=== PATIENT | female | born 1995 | race African-American/Black ===

== ENCOUNTER 2016-10-08 19:51 | Emergency (ER) | payer SELFPAY ==
[~2016-10-08] VITALS: Ht 152.4 cm; Wt 53.0 kg
[2016-10-08 20:26] VITALS: Ht 152.4 cm; Wt 53.0 kg
[2016-10-09 01:13] LABS: URINE BLOOD (Dip) POC Negative (NEGATIVE)
[2016-10-09 01:33] LABS: BASOPHILS % 0.7 % (0.0-2.0); EOSINOPHILS # 0.1 10^3/ul (0.0-0.5); EOSINOPHILS % 1.3 % (0.0-7.0); HEMATOCRIT 39.9 % (37.0-47.0); HEMOGLOBIN 13.9 g/dl (12.0-16.0); LYMPHOCYTES # 2.5 10^3/ul (0.8-2.9); LYMPHOCYTES % 44.9 % (15.0-51.0); MEAN CORPUSCULAR HEMOGLOBIN 32.2 pg (29.0-33.0); MEAN CORPUSCULAR HGB CONC 34.8 g/dl (32.0-37.0); MEAN CORPUSCULAR VOLUME 92.4 fl (82.0-101.0); MEAN PLATELET VOLUME 10.9 fl (7.4-10.4); MONOCYTE # 0.4 10^3/ul (0.3-0.9); MONOCYTES % 7.1 % (0.0-11.0); NEUTROPHIL # 2.5 10^3/ul (1.6-7.5); NEUTROPHILS % 45.8 % (39.0-77.0); PLATELET COUNT 236 10^3/UL (140-415); RED BLOOD COUNT 4.32 10^6/ul (4.20-5.40); RED CELL DISTRIBUTION WIDTH 11.5 % (11.5-14.5); WHITE BLOOD COUNT 5.5 10^3/ul (4.8-10.8)
[2016-10-09] MEDS ORDERED: MULTI PO (01:48)
[2016-10-09] MEDS ORDERED: OMEG-135 PO (01:48)
[2016-10-09] MEDS ORDERED: CHOL100062 PO (01:48)
[2016-10-09 01:56] LABS: CALCIUM 9.8 mg/dl (8.4-10.2); CREATININE 0.89 mg/dl (0.44-1.00); POTASSIUM 3.9 mmol/L (3.5-5.1)
--- NOTE | 2016-10-09 01:57 | RADRPT ---
PROCEDURE: CHEST - 1 VIEW CLINICAL INDICATION: 21-year-old female with syncope. TECHNIQUE: A single frontal AP upright portable view of the chest was performed. The images were reviewed on a PACS workstation. COMPARISON: None. FINDINGS: The cardiomediastinal silhouette has a normal appearance. There is no evidence for an infiltrate. T he pulmonary vascularity is within normal limits. There is no evidence for pneumothorax or pneumomed iastinum. The osseous structures are intact. IMPRESSION: No evidence for active cardiopulmonary disease. .Brant King MD, MD Date Time Electronically viewed and signed by .Brant King MD, MD on 10/09/2016 01:57 .M/
--- NOTE | 2016-10-09 02:08 | ERD ---
ER Documentation Chief Complaint Date/Time DATE: 10/09/16 TIME: 02:08 Chief Complaint Syncopal episode at 1600 per [place] HPI 21-year-old female presenting after an episode of syncope that happened around 1600 [place]. She was standing in line when she suddenly felt lightheaded. Per her boyfriend who is with her, she slumped over onto a railing. She was unconscious for about 1-1/2 minutes at least. She never had any color change. She did urinate on herself but had no seizure-like activity. He only noticed some twitching in her right hand. When she woke up, she was aware of what was going on and was not confused. She denied any associated chest pain, shortness of breath, or headache. She still felt somewhat weak and lightheaded after she regained consciousness and felt like she had some blurry vision which has now resolved. Now she feels back to her normal self. She had an episode like this about 2 weeks ago but she was only unconscious for about 6 seconds per her boyfriend. She denies any family history of sudden cardiac . No personal history of significant medical problems. ROS All systems reviewed and are negative except as per history of present illness. Medications Home Meds Reported Medications Cholecalciferol* (Vitamin D3*) 1,000 Unit Tablet, 1000 UNIT PO DAILY, TAB 10/09/16 [place]-3 Fatty Acids/Fish Oil (Fish Oil 1,000 mg Capsule) 1 Each Capsule, 1 EACH PO, CAP 10/09/16 Multivitamins* (Theragran*) 1 Tab Tab, 1 TAB PO DAILY, TAB 10/09/16 Allergies Allergies: Coded Allergies: No Known Allergy (Unverified , 10/08/16) PMhx/Soc Medical and Surgical Hx: pt denies Medical Hx, pt denies Surgical Hx Hx Psychiatric Problems: No Hx Miscellaneous Medical Probl: No Hx Alcohol Use: No Hx Substance Use: No Hx Tobacco Use: No Smoking Status: Never smoker FmHx Family History: No coronary disease, No diabetes Physical Exam Vitals Vital Signs Date Time Temp Pulse Resp B/P Pulse Ox O2 Delivery O2 Flow Rate FiO2 10/09/16 02:10 98.1 72 19 130/98 100 Room Air 10/09/16 00:48 98.3 70 19 131/101 100 Room Air 10/08/16 20:26 98.0 65 22 104/75 100 Physical Exam Const: Well-appearing, well-nourished, no apparent distress Head: Atraumatic Eyes: Normal Conjunctiva, PERRLA, EOMI ENT: Normal External Ears, Nose and Mouth. Neck: Full range of motion..~ No meningismus. Resp: Clear to auscultation bilaterally Cardio: Regular rate and rhythm, no murmurs. 2+ distal pulses Abd: Soft, non tender, non distended. Normal bowel sounds Skin: No petechiae or rashes Back: No midline or flank tenderness Ext: No cyanosis, or edema. No calf tenderness Neur: Awake and alert and oriented 3, cranial nerves intact, strength and sensations intact in all 4 extremities, cerebellar exam normal, normal gait Psych: Normal Mood and Affect Result Diagram: 10/09/1611410/09/16114 Results 24 hrs Laboratory Tests Test 10/09/16 01:15 10/09/16 01:16 10/09/16 01:18 White Blood Count 5.510^3/ul Red Blood Count 4.3210^6/ul Hemoglobin 13.9g/dl Hematocrit 39.9% Mean Corpuscular Volume 92.4fl Mean Corpuscular Hemoglobin 32.2pg Mean Corpuscular Hemoglobin Concent 34.8g/dl Red Cell Distribution Width 11.5% Platelet Count 34693^3/UL Mean Platelet Volume 10.9fl Neutrophils % 45.8% Lymphocytes % 44.9% Monocytes % 7.1% Eosinophils % 1.3% Basophils % 0.7% Nucleated Red Blood Cells % 0.0/100WBC Neutrophils # 2.510^3/ul Lymphocytes # 2.510^3/ul Monocytes # 0.410^3/ul Eosinophils # 0.110^3/ul Basophils # 0.010^3/ul Nucleated Red Blood Cells # 0.010^3/ul Sodium Level 142mmol/L Potassium Level 3.9mmol/L Chloride Level 99mmol/L Carbon Dioxide Level 28mmol/L Anion Gap 19 Blood Urea Nitrogen 12mg/dl Creatinine 0.89mg/dl Glucose Level 87mg/dl Calcium Level 9.8mg/dl Bedside Glucose 93mg/dL Bedside Urine pH (LAB) 5.5 Bedside Urine Protein (LAB) Negative Bedside Urine Glucose (UA) Negative Bedside Urine Ketones (LAB) Trace Bedside Urine Blood Negative Bedside Urine Nitrite (LAB) Negative Bedside Urine Leukocyte Esterase (L Negative Procedures/MDM EMERGENT LABS AND DIAGNOSTIC STUDIES: Lab Results above were reviewed and interpreted by me. CBC: no anemia or evidence of infection BMP: No evidence of electrolyte abnormality, renal failure, hypoglycemia, liver failure, or biliary obstruction negative Urine dip shows trace ketones 12-lead EKG was interpreted by Velia Miranda MD: Normal Sinus Rhythm with ventricular rate of 61 beats per minute Normal axis Normal intervals, no evidence of Brugada No acute ST or T wave changes suggestive of acute ischemia or STEMI. Radiology Results as interpreted by Radiology below were reviewed by Tony Miranda MD: Chest x-ray shows no acute abnormalities Initial Nursing notes reviewed. Previous Medical Records requested via the Electronic Health Record. EMERGENCY DEPARTMENT COURSE / MEDICAL DECISION MAKING: The patients vitals are within normal limits and labs are unremarkable. The ECG did not show any concerning abnormalities. I have a low suspicion for an arrhythmia, acute coronary syndrome, PE or a CVA or intracranial hemorrhage. Etiology for syncope is unknown but likely benign. I discussed with the patient that I do not think a CT scan of her head is necessitated at this time as she is asymptomatic. The patient agrees. Patient's syncopal symptoms have stabilized while in the department and are suitable for outpatient follow up. I advised follow up with primary care physician in 1-2 days. Return precautions were discussed at bedside. Patient understands and feels comfortable with the discharge plan. Departure Diagnosis: Primary Impression: Syncope Syncope type: unspecified Qualified Code: R55 - Syncope, unspecified syncope type Condition: Stable Patient Instructions: Syncope, Unk Cause Referrals: [facility] YOU HAVE RECEIVED A MEDICAL SCREENING EXAM AND THE RESULTS INDICATE THAT YOU DO NOT HAVE A CONDITION THAT REQUIRES URGENT TREATMENT IN THE EMERGENCY DEPARTMENT. FURTHER EVALUATION AND TREATMENT OF YOUR CONDITION CAN WAIT UNTIL YOU ARE SEEN IN YOUR DOCTORS OFFICE WITHIN THE NEXT 1-2 DAYS. IT IS YOUR RESPONSIBILITY TO MAKE AN APPOINTMENT FOR FOLOW-UP CARE. IF YOU HAVE A PRIMARY DOCTOR --you should call your primary doctor and schedule an appointment IF YOU DO NOT HAVE A PRIMARY DOCTOR YOU CAN CALL OUR PHYSICIAN REFERRAL HOTLINE AT IF YOU CAN NOT AFFORD TO SEE A PHYSICIAN YOU CAN CHOSE FROM THE FOLLOWING [facility] [address] [facility] [address] [facility] [facility] [address] [facility] [facility] [address] [facility] [facility] [address] [facility]. [facility] [address] Additional Instructions: Follow-up with your primary care doctor in the next 1-2 days. Return to the ER for any worsening symptoms or any recurrent episodes. DEDE MIRANDA MD Oct 09, 2016 02:08
[2016-10-09 02:10] VITALS: BP 130/98; PULSE 72; RESP 19; TEMP 98.1
== END 2016-10-09 02:12 | disposition home or self-care (01) ==
LOC: E/R 19:51
DX: R55 Syncope and collapse (principal)
CPT/HCPCS: 36415; 71010; 80048; 81003; 82962; 85025; 93005